=== PATIENT | male | born 1985 | race Caucasian/White ===

== ENCOUNTER → 2017-04-17 | Outpatient (CLI) | payer OTHER | LOC: LAB 17:06 | DX: Z11.3 Encounter for screening for infections with a predominantly sexual mode of transmission (principal); Z20.2 Contact with and (suspected) exposure to infections with a predominantly sexual mode of transmission; Z72.51 High risk heterosexual behavior | CPT/HCPCS: 36415; 80074; 86780; 87390; 87661 ==

== ENCOUNTER → 2021-05-07 | Outpatient (CLI) | payer OTHER ==
[~2021-05-07] MED LIST: BENADRYL 25MG C25 MG PO; CORTIZONE-1057 GM TP; OMNICEF 300 MG300 MG PO; VIBRAMYCIN100 MG PO
== END ==
LOC: LAB 16:32
DX: Z53.9 Procedure and treatment not carried out, unspecified reason (principal)
CPT/HCPCS: 36415